=== PATIENT | male | born 1970 | race African-American/Black ===

== ENCOUNTER 2019-07-19 18:23 | Emergency (ER) | payer MEDICAID ==
[~2019-07-19] VITALS: Ht 185.4 cm; Wt 78.0 kg
[~2019-07-19 18:23] MED LIST: ABAC1TAB3 PO; ABILIFY; ALBU25PO2; ATAZ300C PO; BENZ2TAB7 PO; EFAV1TAB3; MIRT-91 PO; OLAN10TA19 PO; RISP2TAB22 PO; RITO100T PO; SULF1TAB48 PO; TRAM50TA3 PO; VITA400T7 PO; VITAMINS
[2019-07-19 22:30] VITALS: BP 124/72
== END 2019-07-19 22:31 | disposition home or self-care (01) ==
LOC: ER 18:23
DX: S01.511A Laceration without foreign body of lip, initial encounter (principal); M25.561 Pain in right knee; Y04.0XXA Assault by unarmed brawl or fight, initial encounter; Y93.89 Activity, other specified; Y92.89 Other specified places as the place of occurrence of the external cause; Y99.8 Other external cause status; F12.10 Cannabis abuse, uncomplicated; Z79.899 Other long term (current) drug therapy; Z88.2 Allergy status to sulfonamides
CPT/HCPCS: 70450; 73560; 99284; L1830; Z7610

== ENCOUNTER 2021-05-24 13:45 | Emergency (ER) | payer MEDICAID ==
[~2021-05-24] VITALS: Ht 185.4 cm; Wt 85.0 kg
[~2021-05-24 13:45] MED LIST changes: +MIRT-90 PO; -MIRT-91 PO; -OLAN10TA19 PO; +OLAN10TA72 PO; -RISP2TAB22 PO; +RISP2TAB85 PO
[2021-05-24 13:57] VITALS: BP 171/110
[2021-05-24 15:20] LABS: CLARITY URINE CLEAR (CLEAR); COLOR URINE YELLOW (YELLOW); KETONES URINE TRACE (NEGATIVE); LEUKOCYTE ESTERASE URINE NEGATIVE (NEGATIVE); NITRITE URINE NEGATIVE (NEGATIVE); OCCULT BLOOD URINE NEGATIVE (NEGATIVE); PH URINE 5.5 (4.5-8.0); PROTEIN URINE TRACE (NEGATIVE); SPECIFIC GRAVITY URINE 1.026 (1.005-1.030)
[2021-05-24 16:01] LABS: *AMPHETAMINES SCREEN URINE PRESUMTIVE POSITIVE (NEGATIVE); *BARBITURATES SCREEN URINE NEGATIVE (NEGATIVE); *BENZODIAZEPINES SCREEN URINE NEGATIVE (NEGATIVE); *COCAINE SCREEN URINE NEGATIVE (NEGATIVE)
[2021-05-24 16:02] LABS: CANNABINOID URINE SCREEN PRESUMTIVE POSITIVE (NEGATIVE); METHADONE URINE SCREEN NEGATIVE (NEGATIVE); OPIATES URINE SCREEN NEGATIVE (NEGATIVE); PHENCYCLIDINE URINE SCREEN NEGATIVE (NEGATIVE)
== END 2021-05-24 18:16 | disposition left against medical advice (07) ==
LOC: ER 13:45
DX: R07.89 Other chest pain (principal)
CPT/HCPCS: 80305; 81003

== ENCOUNTER 2022-01-29 22:04 | Emergency (ER) | payer MEDICAID ==
[~2022-01-29] VITALS: Ht 177.8 cm; Wt 73.0 kg
[2022-01-29 22:08] VITALS: BP 147/100
== END 2022-01-30 01:00 | disposition left against medical advice (07) ==
LOC: ER 22:04
DX: Z53.21 Procedure and treatment not carried out due to patient leaving prior to being seen by health care provider (principal)

== ENCOUNTER 2022-04-27 02:17 | Emergency (ER) | payer MEDICAID ==
[~2022-04-27] VITALS: Ht 188 cm; Wt 80.0 kg
[2022-04-27] MEDS ORDERED: ZIPRASIDONE MESYLATE 20MG/VIAL IM STA (03:47)
[2022-04-27 05:32] LABS: CLARITY URINE CLOUDY (CLEAR); COLOR URINE YELLOW (YELLOW); KETONES URINE TRACE (NEGATIVE); LEUKOCYTE ESTERASE URINE NEGATIVE (NEGATIVE); NITRITE URINE NEGATIVE (NEGATIVE); OCCULT BLOOD URINE TRACE (NEGATIVE); PH URINE 5.5 (4.5-8.0); PROTEIN URINE 1+ (NEGATIVE); SPECIFIC GRAVITY URINE 1.024 (1.005-1.030)
[2022-04-27 05:38] LABS: *AMPHETAMINES SCREEN URINE PRESUMTIVE POSITIVE (NEGATIVE); *BARBITURATES SCREEN URINE NEGATIVE (NEGATIVE); *BENZODIAZEPINES SCREEN URINE NEGATIVE (NEGATIVE); *COCAINE SCREEN URINE NEGATIVE (NEGATIVE); CANNABINOID URINE SCREEN PRESUMTIVE POSITIVE (NEGATIVE); METHADONE URINE SCREEN NEGATIVE (NEGATIVE); OPIATES URINE SCREEN NEGATIVE (NEGATIVE); PHENCYCLIDINE URINE SCREEN NEGATIVE (NEGATIVE)
[2022-04-27 09:51] VITALS: BP 114/57
== END 2022-04-27 09:53 | disposition home or self-care (01) ==
LOC: ER 02:17
DX: F23 Brief psychotic disorder (principal); F15.10 Other stimulant abuse, uncomplicated; F16.10 Hallucinogen abuse, uncomplicated; F14.10 Cocaine abuse, uncomplicated; F12.10 Cannabis abuse, uncomplicated; Z20.822 Contact with and (suspected) exposure to COVID-19; Z88.3 Allergy status to other anti-infective agents; Z21 Asymptomatic human immunodeficiency virus [HIV] infection status; Z88.2 Allergy status to sulfonamides
CPT/HCPCS: 80305; 81003; 96372; 99283; J3486

== ENCOUNTER 2023-04-26 21:55 | Emergency (ER) | payer MEDICAID ==
[~2023-04-26] VITALS: Ht 185.4 cm; Wt 73.0 kg
[~2023-04-26 21:55] MED LIST changes: +BENZ2TAB65 PO; -BENZ2TAB7 PO
[2023-04-26 21:58] VITALS: PULSE 87; TEMP 98.9; O2SAT 99
[2023-04-26] MEDS ORDERED: ACETAMINOPHEN 325MG TABLET PO ONE (22:15)
[2023-04-26] MEDS ORDERED: LIDOCAINE 5% PATCH TOP SCH (22:15)
[2023-04-26] MEDS ORDERED: ACET-2708 MT (23:05)
[2023-04-27 00:13] VITALS: BP 131/68; RESP 19
== END 2023-04-27 00:15 | disposition home or self-care (01) ==
LOC: ER 21:55
DX: S20.212A Contusion of left front wall of thorax, initial encounter (principal); F31.9 Bipolar disorder, unspecified; F12.90 Cannabis use, unspecified, uncomplicated; F14.90 Cocaine use, unspecified, uncomplicated; Z88.2 Allergy status to sulfonamides; Z88.8 Allergy status to other drugs, medicaments and biological substances; W18.30XA Fall on same level, unspecified, initial encounter; Y93.89 Activity, other specified; Y92.89 Other specified places as the place of occurrence of the external cause; Y99.8 Other external cause status
CPT/HCPCS: 71101; 99283

== ENCOUNTER → 2023-11-13 | Emergency (ER) | payer MEDICAID, OTHER ==
[~2023-11-13] VITALS: Ht 177.8 cm; Wt 60.0 kg
[~2023-11-13] MED LIST changes: +ACET-2708 MT; +KETOROLAC 30MG/ML VIAL IV ONE; +RISP-29 PO; -RISP2TAB85 PO
[2023-11-13 09:42] VITALS: O2SAT 100
[2023-11-13] MEDS: ONDANSETRON HCL 4MG/2ML INJ IV STA (09:43)
[2023-11-13 10:05] LABS: BASOPHILS % 0.2 % (0.0-2.0); EOSINOPHILS % 0.4 % (0.0-5.0); HEMATOCRIT. 42.1 % (42.0-52.0); HEMOGLOBIN. 13.9 g/dL (14.0-18.0); LYMPHOCYTES % 7.9 % (20.0-50.0); MEAN CORPUSCULAR HEMOGLOBIN 30.8 pg (28.0-32.0); MEAN CORPUSCULAR HGB CONC 32.9 g/dL (31.0-37.0); MEAN CORPUSCULAR VOLUME 93.4 fL (80.0-94.0); MONOCYTES % 8.5 % (2.0-8.0); PLATELET 309 x1000/uL (130-400); RED BLOOD CELL COUNT 4.51 mill/uL (4.7-6.1); RED CELL DISTRIBUTION WIDTH 14.3 % (11.6-14.6); WHITE BLOOD COUNT 8.6 x1000/uL (4.5-11.0)
[2023-11-13 10:15] LABS: CHLORIDE 109 mEq/L (98-107); POTASSIUM 4.1 mEq/L (3.5-5.1); SODIUM 134 mEq/L (136-145)
[2023-11-13 10:16] LABS: CARBON DIOXIDE 24 mEq/L (21-32)
[2023-11-13 10:17] LABS: CALCIUM 9.7 mg/dL (8.7-10.4)
[2023-11-13 10:21] LABS: CREATININE 1.1 mg/dL (0.6-1.3); GLUCOSE 83 mg/dL (70-105); UREA NITROGEN BLOOD 13 mg/dL (9-23)
[2023-11-13] MEDS: SODIUM CHLORIDE 0.9% 1,000 ML IV ONE ×2 (13:50→16:55)
[2023-11-13] MEDS: KETOROLAC 30MG/ML VIAL IV NR (17:59)
[2023-11-13 21:39] LABS: PROTHROMBIN TIME 11.1 sec (9.6-11.0)
[2023-11-14 00:51] VITALS: BP 136/82; PULSE 88; RESP 20; TEMP 98.3
== END ==
LOC: ER 09:40 → EDBEDREQTM 13:10 → EDBEDREQ 13:10 → UNDOADMIN 17:45 → 5WST 17:45 → 6EST 11-14 02:26 → UNDODISIN 11-14 02:40
DX: R10.13 Epigastric pain (principal); F31.9 Bipolar disorder, unspecified; J45.909 Unspecified asthma, uncomplicated; Z53.29 Procedure and treatment not carried out because of patient's decision for other reasons
CPT/HCPCS: 80048; 83690; 85025; 85610; 36415; 96361; 96374; 99285; J1885; J7030; Z7610

== ENCOUNTER 2024-03-26 04:28 | Emergency (ER) | payer MEDICAID ==
[~2024-03-26] VITALS: Ht 180.3 cm; Wt 68.0 kg
[~2024-03-26 04:28] MED LIST changes: -KETOROLAC 30MG/ML VIAL IV ONE
[2024-03-26 04:30] VITALS: BP 132/94; PULSE 97; RESP 16; TEMP 98.8; O2SAT 98
== END 2024-03-26 06:50 | disposition home or self-care (01) ==
LOC: ER 04:28
DX: F15.90 Other stimulant use, unspecified, uncomplicated (principal); J45.909 Unspecified asthma, uncomplicated; F31.9 Bipolar disorder, unspecified; Z88.1 Allergy status to other antibiotic agents; Z88.2 Allergy status to sulfonamides; Z79.899 Other long term (current) drug therapy
CPT/HCPCS: 82962; 99283

== ENCOUNTER 2024-03-30 12:21 | Emergency (ER) | payer MEDICAID ==
[~2024-03-30] VITALS: Ht 172.7 cm; Wt 82.0 kg
[2024-03-30 12:26] VITALS: BP 113/75; PULSE 77; TEMP 97.7; O2SAT 100
[2024-03-30 14:06] LABS: BASOPHILS % 0.4 % (0.0-2.0); EOSINOPHILS % 0.2 % (0.0-5.0); HEMATOCRIT. 35.7 % (42.0-52.0); HEMOGLOBIN. 11.5 g/dL (14.0-18.0); LYMPHOCYTES % 7.7 % (20.0-50.0); MEAN CORPUSCULAR HEMOGLOBIN 29.8 pg (28.0-32.0); MEAN CORPUSCULAR HGB CONC 32.4 g/dL (31.0-37.0); MEAN CORPUSCULAR VOLUME 91.9 fL (80.0-94.0); MEAN PLATELET VOLUME 7.3 fl (7.4-10.4); MONOCYTES % 9.9 % (2.0-8.0); NEUTROPHILS % 81.8 % (40.0-76.0); PLATELET 373 x1000/uL (130-400); RED BLOOD CELL COUNT 3.88 mill/uL (4.7-6.1); WHITE BLOOD COUNT 5.6 x1000/uL (4.5-11.0)
[2024-03-30 14:12] LABS: CHLORIDE 106 mEq/L (98-107); POTASSIUM 4.6 mEq/L (3.5-5.1); SODIUM 136 mEq/L (136-145)
[2024-03-30 14:13] LABS: CARBON DIOXIDE 28 mEq/L (21-32)
[2024-03-30 14:18] LABS: CREATININE 1.3 mg/dL (0.6-1.3); GLUCOSE 83 mg/dL (70-105); UREA NITROGEN BLOOD 18 mg/dL (9-23)
[2024-03-30 14:21] LABS: TROPONIN I HIGH SENSITIVITY < 4 ng/L (3.0-53)
[2024-03-30 16:15] VITALS: RESP 16
== END 2024-03-30 16:37 | disposition home or self-care (01) ==
LOC: ER 12:21
DX: S09.90XA Unspecified injury of head, initial encounter (principal); J45.909 Unspecified asthma, uncomplicated; F14.90 Cocaine use, unspecified, uncomplicated; F12.90 Cannabis use, unspecified, uncomplicated; F31.9 Bipolar disorder, unspecified; Z79.899 Other long term (current) drug therapy; Z88.1 Allergy status to other antibiotic agents; Z88.2 Allergy status to sulfonamides
CPT/HCPCS: 36415; 71045; 80048; 83880; 84484; 85025; 93005; 99285

== ENCOUNTER 2024-06-09 00:54 | Emergency (ER) | payer MEDICAID ==
[~2024-06-09] VITALS: Ht 185.4 cm; Wt 90.0 kg
[2024-06-09] MEDS: IBUPROFEN 600MG TABLET PO ONE (01:00)
[2024-06-09] MEDS: DEXAMETHASONE 10 MG/ML VIAL PO ONE (01:45)
[2024-06-09 01:48] LABS: HEMATOCRIT. 33.6 % (42.0-52.0); MEAN CORPUSCULAR HEMOGLOBIN 30.4 pg (28.0-32.0); MEAN CORPUSCULAR HGB CONC 32.8 g/dL (31.0-37.0); MEAN CORPUSCULAR VOLUME 92.7 fL (80.0-94.0); MEAN PLATELET VOLUME 7.3 fl (7.4-10.4); PLATELET 404 x1000/uL (130-400); RED BLOOD CELL COUNT 3.63 mill/uL (4.7-6.1); RED CELL DISTRIBUTION WIDTH 14.7 % (11.6-14.6); WHITE BLOOD COUNT 10.9 x1000/uL (4.5-11.0)
[2024-06-09 01:55] LABS: DIFFERENTIAL COMMENT 1
[2024-06-09 02:00] LABS: CHLORIDE 102 mEq/L (98-107); POTASSIUM 4.2 mEq/L (3.5-5.1); SODIUM 131 mEq/L (136-145)
[2024-06-09 02:01] LABS: CARBON DIOXIDE 24 mEq/L (21-32)
[2024-06-09 02:02] LABS: CALCIUM 8.9 mg/dL (8.7-10.4)
[2024-06-09 02:06] LABS: CREATININE 1.3 mg/dL (0.6-1.3); GLUCOSE 96 mg/dL (70-105)
[2024-06-09 02:07] LABS: UREA NITROGEN BLOOD 24 mg/dL (9-23)
[2024-06-09 02:08] LABS: ALANINE AMINOTRANSFERASE 25 IU/L (10-49); ASPARTATE AMINOTRANSFERASE 28 IU/L (<34)
[2024-06-09 02:09] LABS: BILIRUBIN TOTAL 0.3 mg/dL (0.1-1.0); PROTEIN TOTAL 10.2 g/dL (6.0-8.3)
[2024-06-09 03:23] VITALS: PULSE 84; RESP 20; O2SAT 96
[2024-06-09] MEDS: IPRATROPIUM/ALBUTEROL 0.5-3(2.5)MG/3ML NEB HHN ONE (03:23)
[2024-06-09 04:00] LABS: PLATELET ESTIMATE NORMAL
[2024-06-09] MEDS ORDERED: ALBU90AE INH (04:22)
[2024-06-09] MEDS: IPRATROPIUM/ALBUTEROL 0.5-3(2.5)MG/3ML NEB HHN NR (05:01)
[2024-06-09 05:27] VITALS: TEMP 36.72516; O2SAT 98
[2024-06-09 05:29] VITALS: BP 107/74; PULSE 78; RESP 20
[2024-06-09] MEDS: IBUPROFEN 600MG TABLET PO NR (05:29)
[2024-06-09] MEDS: DEXAMETHASONE 10 MG/ML VIAL PO NR (05:29)
== END 2024-06-09 05:31 | disposition home or self-care (01) ==
LOC: ER 01:03
DX: J45.901 Unspecified asthma with (acute) exacerbation (principal); F14.10 Cocaine abuse, uncomplicated; F12.10 Cannabis abuse, uncomplicated; Z68.26 Body mass index [BMI] 26.0-26.9, adult; Z88.1 Allergy status to other antibiotic agents; Z88.2 Allergy status to sulfonamides; Z79.624 Long term (current) use of inhibitors of nucleotide synthesis; Z79.899 Other long term (current) drug therapy
CPT/HCPCS: 80053; 83690; 85025; 36415; 94640; 99283; J1100; Z7610 ×3

== ENCOUNTER 2024-07-01 01:37 | Emergency (ER) | payer MEDICAID ==
[~2024-07-01] VITALS: Ht 185.4 cm; Wt 82.0 kg
[~2024-07-01 01:37] MED LIST changes: +ALBU90AE INH
[2024-07-01 01:42] VITALS: BP 123/86; PULSE 99; RESP 16; O2SAT 97
[2024-07-01] MEDS ORDERED: ACETAMINOPHEN 325MG TABLET PO ONE (02:00)
[2024-07-01] MEDS ORDERED: TOPUD MT (07:05)
== END 2024-07-01 07:18 | disposition home or self-care (01) ==
LOC: ER 01:37
DX: M54.2 Cervicalgia (principal); J45.909 Unspecified asthma, uncomplicated; Z79.899 Other long term (current) drug therapy; Z88.1 Allergy status to other antibiotic agents; Z88.2 Allergy status to sulfonamides
CPT/HCPCS: 72040; 99283

== ENCOUNTER 2024-08-18 17:37 | Emergency (ER) | payer MEDICAID ==
[~2024-08-18] VITALS: Ht 177.8 cm; Wt 85.0 kg
[~2024-08-18 17:37] MED LIST changes: +TOPUD MT
[2024-08-18 17:39] VITALS: TEMP 36.9; O2SAT 100
[2024-08-18 19:12] LABS: BASOPHILS % 0.8 % (0.0-2.0); EOSINOPHILS % 0.2 % (0.0-5.0); HEMATOCRIT. 27.9 % (42.0-52.0); HEMOGLOBIN. 9.3 g/dL (14.0-18.0); LYMPHOCYTES % 10.1 % (20.0-50.0); MEAN CORPUSCULAR HEMOGLOBIN 29.9 pg (28.0-32.0); MEAN CORPUSCULAR HGB CONC 33.3 g/dL (31.0-37.0); MEAN CORPUSCULAR VOLUME 89.8 fL (80.0-94.0); MEAN PLATELET VOLUME 7.3 fl (7.4-10.4); MONOCYTES % 12.9 % (2.0-8.0); PLATELET 443 x1000/uL (130-400); RED BLOOD CELL COUNT 3.11 mill/uL (4.7-6.1); RED CELL DISTRIBUTION WIDTH 15.1 % (11.6-14.6)
[2024-08-18 19:17] LABS: CHLORIDE 104 mEq/L (98-107); POTASSIUM 3.6 mEq/L (3.5-5.1); SODIUM 133 mEq/L (136-145)
[2024-08-18 19:18] LABS: CALCIUM 8.2 mg/dL (8.7-10.4); CARBON DIOXIDE 24 mEq/L (21-32)
[2024-08-18 19:23] LABS: GLUCOSE 112 mg/dL (70-105); UREA NITROGEN BLOOD 13 mg/dL (9-23)
[2024-08-18 19:26] LABS: TROPONIN I HIGH SENSITIVITY < 4 ng/L (3.0-53)
[2024-08-18 21:02] VITALS: BP 114/73; PULSE 85; RESP 18; O2SAT 98
[2024-08-18] MEDS: IBUPROFEN 600MG TABLET PO ONE (21:02)
[2024-08-18] MEDS: SODIUM CHLORIDE 0.9% 1,000 ML IV ONE (21:02)
== END 2024-08-18 21:07 | disposition home or self-care (01) ==
LOC: ER 17:37
DX: D64.9 Anemia, unspecified (principal); R06.02 Shortness of breath; M79.673 Pain in unspecified foot; F12.90 Cannabis use, unspecified, uncomplicated; F15.90 Other stimulant use, unspecified, uncomplicated; J45.909 Unspecified asthma, uncomplicated; Z88.2 Allergy status to sulfonamides; Z88.1 Allergy status to other antibiotic agents; Z79.899 Other long term (current) drug therapy; Z79.624 Long term (current) use of inhibitors of nucleotide synthesis
CPT/HCPCS: 99285; 71045; 80048; 83880; 85025; 84484; 36415; 93005; J7030